=== PATIENT | female | born 1960 | race Caucasian/White ===

== ENCOUNTER 2021-01-04 20:47 | Emergency (ER) | payer OTHER ==
[2021-01-04 21:04] VITALS: BMI 24.7
[2021-01-04] MEDS ORDERED: SODIUM CHLORIDE 0.9% 500 ML INFUS.BAG IV ONE (21:40)
[2021-01-04] MEDS ORDERED: METOCLOPRAMIDE HCL INJECTION 10 MG/2 ML VIAL IVPB ONE (21:40)
[2021-01-04] MEDS ORDERED: MECLIZINE HCL 25 MG TABLET (FP) PO ONE (21:40)
[2021-01-04] MEDS ORDERED: ACETAMINOPHEN 1000 MG/100 ML VIAL (NON FORMULARY) IVPB ONE (21:55)
[2021-01-04] MEDS ORDERED: MECLIZINE HCL 25 MG TABLET (FP) ONE (22:10)
[2021-01-04] MEDS ORDERED: MECLIZINE HCL 12.5 MG TABLET ONE (22:10)
[2021-01-04] MEDS ORDERED: METOCLOPRAMIDE HCL INJECTION 10 MG/2 ML VIAL ONE (22:11)
[2021-01-04 22:30] LABS: CALCIUM 9.6 mg/dL (8.5-10.1)
[2021-01-04 22:31] LABS: BASO % 0.5 % (0-2.0); EOS % 1.1 % (0-4.5); HEMATOCRIT 39.4 % (32.4-45.2); MCH 28.2 pg (25.7-33.7); MCHC 32.9 g/dl (32.0-36.0); MEAN CELL VOLUME 85.7 fl (80-96); MEAN PLT VOLUME 9.1 fl (7.5-11.1); MONO % 10.8 % (3.8-10.2); NEUT % 45.6 % (42.8-82.8); PLATELET COUNT 209 10^3/uL (134-434); RDW 15.1 % (11.6-15.6)
[2021-01-04 22:31] LABS: ALBUMIN 3.9 g/dl (3.4-5.0); BLOOD UREA NITROGEN 17.7 mg/dL (7-18)
[2021-01-04 22:35] LABS: PHOSPHOROUS 3.4 mg/dL (2.5-4.9)
[2021-01-04 22:36] LABS: BILIRUBIN,TOTAL 0.2 mg/dL (0.2-1); TOT PROT 7.9 g/dl (6.4-8.2)
[2021-01-04] MEDS ORDERED: ACETAMINOPHEN INJECTION 100 ML IVPB ONE (22:40)
[2021-01-04] MEDS ORDERED: POTASSIUM CHLORIDE TABS 20 MEQ TABLET.ER (FP) PO ONE (23:06)
[2021-01-05] MEDS ORDERED: POTASSIUM CHLORIDE TABS 20 MEQ TABLET.ER (FP) PO ONE (00:18)
[2021-01-05 01:31] LABS: EPI CELLS 4 /uL (0-25.1); HYALINE CASTS 0 /uL (0-3.1); URINE APPEARANCE CLEAR; URINE BACTERIA 45 /uL (0-1359); URINE BILIRUBIN NEGATIVE (NEGATIVE); URINE COLOR YELLOW; URINE GLUCOSE (UA) NEGATIVE (NEGATIVE); URINE KETONE NEGATIVE (NEGATIVE); URINE LEUK ESTERASE 2+ (NEGATIVE); URINE NITRITE NEGATIVE (NEGATIVE); URINE PROTEIN NEGATIVE (NEGATIVE); URINE RBC 6 /uL (0-23.9); URINE UROBILINOGEN 0.2 mg/dL (0.2-1.0); URINE WBC 26 /uL (0-25.8)
[2021-01-05] MEDS ORDERED: CEFTRIAXONE 1,000 MG in DEXTROSE 5%-WATER - 50 ML IVPB ONE (01:39)
[2021-01-05] MEDS ORDERED: CEFTRIAXONE 1 GM/50 ML BAG ONE (01:45)
[2021-01-05 02:20] VITALS: BP 115/82; PULSE 72; TEMP 98.2
== END 2021-01-05 02:20 | disposition home or self-care (01) ==
LOC: JER 20:47
PROC: 3E03329 Introduction of Other Anti-infective into Peripheral Vein, Percutaneous Approach (ICD-10-PCS; principal; 2021-01-04)
PROC: 3E033GC Introduction of Other Therapeutic Substance into Peripheral Vein, Percutaneous Approach (ICD-10-PCS; 2021-01-04)
DX: R42 Dizziness and giddiness (principal); N39.0 Urinary tract infection, site not specified
CPT/HCPCS: 36415; 70450-TC; 80053; 81003; 82550; 83735; 84100; 84484; 85025; 87086; 93005; 93010; 99285-25; C9803; J0131; U0003; U0005